=== PATIENT | female | born 1990 | race Caucasian/White ===

== ENCOUNTER 2017-12-13 09:37 | Emergency (ER) | payer OTHER ==
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
[2017-12-13 11:40] VITALS: BP 114/78
== END 2017-12-13 11:39 | disposition home or self-care (01) ==
LOC: ER 09:37
DX: M79.671 Pain in right foot (principal); V49.9XXA Car occupant (driver) (passenger) injured in unspecified traffic accident, initial encounter
CPT/HCPCS: 99283